=== PATIENT | female | born 1935 | race Caucasian/White ===

== ENCOUNTER 2017-04-18 13:15 | Inpatient (IN) | payer MEDICARE, OTHER ==
[~2017-04-18] VITALS: Ht 152.4 cm; Wt 60.3 kg
[~2017-04-18 13:15] MED LIST: CITA10TA70 PO; GLIP-115 PO; LISI-646 PO; METF-371 PO; MONT10TA34 OR; OMEP20CA74 OR; SIMV-13 PO
[2017-04-18 13:51] LABS: Eosinophils # (auto) 0.1 uL; Mean Corpuscular Volume 82.2 fL (80.0-100.0); Red Blood Cells 4.14 10^6/uL (4.0-5.20)
[2017-04-18 13:53] LABS: Basophils # (auto) 0 uL; Basophils % (auto) 0.3 % (0.0-2.0); Eosinophils % (auto) 0.8 % (0.0-7.0); Hematocrit 34.1 % (36.0-46.0); Lymphocytes # (auto) 0.4 uL; Lymphocytes % (auto) 5.9 % (10.0-50.0); Mean Corpuscular Hemoglobin 26.6 pg (28.0-32.0); Mean Corpuscular Hgb Conc. 32.4 g/dL (32.0-36.0); Neutrophils # (auto) 5.5 uL; Nucleated Red Blood Cells % 0.1 %; Platelet Count (auto) 182 10^3/uL (140-450); Red Cell Distribution Width 14.8 % (11.8-14.3)
[2017-04-18 14:12] LABS: Alanine Aminotransferase 18 U/L (13-56); Albumin 3.2 g/dL (3.4-5.0); Alkaline Phosphatase 91 U/L (45-117); Anion Gap 12 (5-15); Aspartate Aminotransferase 18 U/L (15-37); BUN/Creatinine Ratio 14.1; Bilirubin, Total 0.2 mg/dL (0.2-1.0); Blood Urea Nitrogen 21 mg/dL (7-18); Calcium 8.4 mg/dL (8.5-10.1); Carbon Dioxide 23 mmol/L (21-32); Chloride 96 mmol/L (98-107); GFR African American 43 mL/min; GFR Non-African American 36 mL/min; Glucose 112 mg/dL (74-106); Potassium 4.1 mmol/L (3.5-5.1); Sodium 131 mmol/L (136-145); Total Protein 7.1 g/dL (6.4-8.2)
[2017-04-18] MEDS ORDERED: SODIUM CHLORIDE 0.9% 1,000 ML IVB ONE (14:29)
[2017-04-18] MEDS ORDERED: LORazepam 0.5 MG TAB PO PRN (15:15)
[2017-04-18] MEDS ORDERED: PROMETHAZINE HCL 25 MG/ML 1ML IV PRN (15:15)
[2017-04-18] MEDS ORDERED: ACETAMINOPHEN 500 MG TAB PO PRN (15:15)
[2017-04-18] MEDS ORDERED: LACTULOSE 20Gm/30ML SOLN PO PRN (15:15)
[2017-04-18] MEDS ORDERED: MORPHINE SULFATE 4 MG/ML SYR/VIAL IV PRN ×2 (15:15)
[2017-04-18] MEDS ORDERED: DEXTROSE (50%) 50ML SYRG IV PRN (15:15)
[2017-04-18] MEDS ORDERED: NITROGLYCERIN 0.4 MG SL TAB SL PRN (15:15)
[2017-04-18] MEDS ORDERED: LABETALOL HCL 5 MG/ML ML 20ML VIAL IV PRN (15:15)
[2017-04-18] MEDS: ENOXAPARIN SOD 30 MG/0.3 ML SYRINGE SC SCH (16:35)
[2017-04-18] MEDS: PANTOPRAZOLE 40 MG TAB PO SCH (16:35)
[2017-04-18] MEDS: SODIUM CHLORIDE 0.9% 1,000 ML IV SCH (16:46)
[2017-04-18] MEDS: ACCU-CHEK COMFORT CURVE STRIP VI SCH ×2 (17:00→22:07)
[2017-04-18] MEDS: InsuLIN REG 1unit/0.01ml Soln (100units/ml) SC SCH ×2 (17:00→22:00)
[2017-04-18 17:57] VITALS: BP 138/69
[2017-04-18] MEDS ORDERED: INFLUENZA QUAD 2017-2018 0.5 ML SYRG IM ONE (18:30)
[2017-04-18 22:00] VITALS: BP 159/81
[2017-04-18] MEDS: ATORVASTATIN 20 MG TAB PO SCH (22:08)
[2017-04-18] MEDS: TEMAZEPAM 15 MG CAP PO PRN (23:08)
[2017-04-19] MEDS: SODIUM CHLORIDE 0.9% 1,000 ML IV SCH ×2 (03:36→18:26)
[2017-04-19 05:00] VITALS: BP 162/66
[2017-04-19] MEDS: ACCU-CHEK COMFORT CURVE STRIP VI SCH ×4 (06:09→22:00)
[2017-04-19] MEDS: InsuLIN REG 1unit/0.01ml Soln (100units/ml) SC SCH ×4 (06:09→22:00)
[2017-04-19 08:00] VITALS: BP 109/60
[2017-04-19 08:02] LABS: Eosinophils # (auto) 0.1 uL; Mean Corpuscular Hemoglobin 26.9 pg (28.0-32.0); Mean Corpuscular Hgb Conc. 31.9 g/dL (32.0-36.0); Monocytes # (auto) 0.9 uL; Neutrophils # (auto) 4.7 uL; White Blood Cell 6.5 10^3/uL (4.4-10.8)
[2017-04-19 08:04] LABS: Basophils # (auto) 0.1 uL; Basophils % (auto) 0.9 % (0.0-2.0); Eosinophils % (auto) 0.9 % (0.0-7.0); Hemoglobin 10.8 g/dL (12.2-16.2); Lymphocytes # (auto) 0.9 uL; Lymphocytes % (auto) 13.1 % (10.0-50.0); Mean Corpuscular Volume 84.4 fL (80.0-100.0); Monocytes % (auto) 13.5 % (0.0-12.0); Neutrophils % (auto) 71.6 % (37.0-80.0); Nucleated Red Blood Cells % 0.5 %; Platelet Count (auto) 169 10^3/uL (140-450); Red Blood Cells 4.02 10^6/uL (4.0-5.20)
[2017-04-19 08:51] LABS: BUN/Creatinine Ratio 12.9; Bilirubin, Total 0.2 mg/dL (0.2-1.0); Calcium 8.1 mg/dL (8.5-10.1); Total Protein 6.9 g/dL (6.4-8.2)
[2017-04-19 09:00] VITALS: BP 109/60
[2017-04-19 09:36] LABS: Folate (Folic Acid) > 24.00 ng/mL (5.38-24)
[2017-04-19 09:44] LABS: Urine Bacteria MANY /hpf (None Seen); Urine Blood TRACE /uL (Negative); Urine Specific Gravity 1.006 (1.001-1.035); Urine WBC 66 /hpf (0 - 5)
[2017-04-19] MEDS: ASPirin 81 mg TAB PO SCH (10:22)
[2017-04-19] MEDS: ENOXAPARIN SOD 30 MG/0.3 ML SYRINGE SC SCH (10:22)
[2017-04-19] MEDS: PANTOPRAZOLE 40 MG TAB PO SCH (10:22)
[2017-04-19] MEDS ORDERED: MORPHINE SULFATE 4 MG/ML SYR/VIAL IV PRN (11:45)
[2017-04-19] MEDS ORDERED: AZITHROMYCIN 500MG/ 250ML 250 ML IV ONE (11:45)
[2017-04-19] MEDS ORDERED: OSELTAMIVIR 75 MG CAP PO ONE (11:45)
[2017-04-19] MEDS ORDERED: cefTRIAXone 1GM/10ml IVPUSH 10 ML IV ONE (11:45)
[2017-04-19] MEDS ORDERED: OSELTAMIVIR 30 MG CAP PO ONE (12:00)
[2017-04-19 13:00] VITALS: BP 115/47
[2017-04-19 17:00] VITALS: BP 150/69
[2017-04-19] MEDS: ATORVASTATIN 20 MG TAB PO SCH (19:51)
[2017-04-19] MEDS: HYDROcodone-ACET 5/325MG TAB PO PRN (20:00)
[2017-04-19] MEDS: TEMAZEPAM 15 MG CAP PO PRN (21:17)
[2017-04-19] MEDS ORDERED: OSELTAMIVIR 75 MG CAP PO SCH (22:00)
[2017-04-19 22:10] VITALS: BP 156/67
[2017-04-20] MEDS: SODIUM CHLORIDE 0.9% 1,000 ML IV SCH ×2 (04:36→18:13)
[2017-04-20 04:50] VITALS: BP 127/70
[2017-04-20] MEDS: InsuLIN REG 1unit/0.01ml Soln (100units/ml) SC SCH ×2 (06:05→11:30)
[2017-04-20] MEDS: ACCU-CHEK COMFORT CURVE STRIP VI SCH ×2 (06:06→11:30)
[2017-04-20 08:00] VITALS: BP 109/60
[2017-04-20 08:08] VITALS: BP 169/67
[2017-04-20 08:33] LABS: Basophils # (auto) 0 uL; Basophils % (auto) 0.6 % (0.0-2.0); Eosinophils # (auto) 0.2 uL; Eosinophils % (auto) 4.4 % (0.0-7.0); Hemoglobin 10.4 g/dL (12.2-16.2); Lymphocytes # (auto) 0.8 uL; Lymphocytes % (auto) 17.7 % (10.0-50.0); Mean Corpuscular Hgb Conc. 32.6 g/dL (32.0-36.0); Mean Corpuscular Volume 82.9 fL (80.0-100.0); Monocytes # (auto) 0.7 uL; Monocytes % (auto) 14.9 % (0.0-12.0); Neutrophils # (auto) 2.8 uL; Neutrophils % (auto) 62.4 % (37.0-80.0); Nucleated Red Blood Cells % 0.3 %; Platelet Count (auto) 145 10^3/uL (140-450); Red Blood Cells 3.86 10^6/uL (4.0-5.20); Red Cell Distribution Width 14.6 % (11.8-14.3); White Blood Cell 4.5 10^3/uL (4.4-10.8)
[2017-04-20 08:50] LABS: BUN/Creatinine Ratio 12.7; Calcium 8.1 mg/dL (8.5-10.1); Potassium 4.3 mmol/L (3.5-5.1)
[2017-04-20] MEDS: ASPirin 81 mg TAB PO SCH (10:22)
[2017-04-20] MEDS: OSELTAMIVIR 30 MG CAP PO SCH (10:23)
[2017-04-20] MEDS: cefTRIAXone 1GM/10ml IVPUSH 10 ML IV SCH (10:23)
[2017-04-20] MEDS: PANTOPRAZOLE 40 MG TAB PO SCH (10:23)
[2017-04-20] MEDS: ENOXAPARIN SOD 30 MG/0.3 ML SYRINGE SC SCH (10:24)
[2017-04-20] MEDS: AZITHROMYCIN 500MG/ 250ML 250 ML IV SCH (10:46)
[2017-04-20 11:53] VITALS: BP 143/74
[2017-04-20] MEDS: HYDROcodone-ACET 5/325MG TAB PO PRN ×3 (13:00→20:25)
[2017-04-20 16:10] VITALS: BP 159/77
[2017-04-20] MEDS: ATORVASTATIN 20 MG TAB PO SCH (20:25)
[2017-04-20 21:57] VITALS: BP 162/71
[2017-04-21 05:26] VITALS: BP 156/76
[2017-04-21] MEDS: SODIUM CHLORIDE 0.9% 1,000 ML IV SCH (05:36)
[2017-04-21 07:28] LABS: BUN/Creatinine Ratio 9.5; Potassium 3.9 mmol/L (3.5-5.1)
[2017-04-21 09:00] VITALS: BP 146/85
[2017-04-21] MEDS: cefTRIAXone 1GM/10ml IVPUSH 10 ML IV SCH (09:14)
[2017-04-21] MEDS: ASPirin 81 mg TAB PO SCH (10:40)
[2017-04-21] MEDS: ENOXAPARIN SOD 30 MG/0.3 ML SYRINGE SC SCH (10:40)
[2017-04-21] MEDS: PANTOPRAZOLE 40 MG TAB PO SCH (10:40)
[2017-04-21] MEDS: AZITHROMYCIN 500MG/ 250ML 250 ML IV SCH (10:41)
[2017-04-21 12:00] VITALS: BP 176/76
[2017-04-21] MEDS: OSELTAMIVIR 30 MG CAP PO SCH (15:09)
[2017-04-21 16:30] VITALS: BP 149/85
[2017-04-21 16:54] VITALS: BP 146/85
== END 2017-04-21 17:34 | disposition home health service (06) | DRG 871 ==
LOC: ER 13:15 → EDBD 13:15 → TELE 13:16 → TELE-EAST 17:01
PROVIDERS: ADMIT Internal Medicine; ATTEND Internal Medicine
DX: A41.9 Sepsis, unspecified organism (principal); N17.0 Acute kidney failure with tubular necrosis; G92 Toxic encephalopathy; E87.1 Hypo-osmolality and hyponatremia; N39.0 Urinary tract infection, site not specified; I69.354 Hemiplegia and hemiparesis following cerebral infarction affecting left non-dominant side; J98.11 Atelectasis; R55 Syncope and collapse; E86.0 Dehydration; I70.0 Atherosclerosis of aorta; I08.0 Rheumatic disorders of both mitral and aortic valves; D63.8 Anemia in other chronic diseases classified elsewhere; E11.21 Type 2 diabetes mellitus with diabetic nephropathy; E78.5 Hyperlipidemia, unspecified; E87.8 Other disorders of electrolyte and fluid balance, not elsewhere classified; F03.90 Unspecified dementia, unspecified severity, without behavioral disturbance, psychotic disturbance, mood disturbance, and anxiety; F32.9 Major depressive disorder, single episode, unspecified; G40.409 Other generalized epilepsy and epileptic syndromes, not intractable, without status epilepticus; I12.9 Hypertensive chronic kidney disease with stage 1 through stage 4 chronic kidney disease, or unspecified chronic kidney disease; E11.22 Type 2 diabetes mellitus with diabetic chronic kidney disease; G93.89 Other specified disorders of brain; I65.22 Occlusion and stenosis of left carotid artery; J10.1 Influenza due to other identified influenza virus with other respiratory manifestations; N18.3 Chronic kidney disease, stage 3 (moderate); Z79.82 Long term (current) use of aspirin; Z79.899 Other long term (current) drug therapy; Z82.49 Family history of ischemic heart disease and other diseases of the circulatory system; Z83.3 Family history of diabetes mellitus; Z79.84 Long term (current) use of oral hypoglycemic drugs; Z90.89 Acquired absence of other organs
CPT/HCPCS: 36415; 70450; 70551; 71045; 80048; 80053; 81001; 82550; 82607; 82746; 82962; 83036; 84443; 84484; 85025; 85652; 87804; 93005; 93306; 93886; 96361; 96365; 96372; 96375; 97116; 97163; 97530; G9035

== ENCOUNTER 2017-12-05 08:09 | Inpatient (IN) | payer MEDICARE, OTHER ==
[~2017-12-05] VITALS: Ht 152.4 cm; Wt 53.0 kg
[~2017-12-05 08:09] MED LIST changes: -CITA10TA70 PO; -LISI-646 PO; -MONT10TA34 OR; -SIMV-13 PO
[2017-12-05 09:06] LABS: Basophils # (auto) 0 uL; Basophils % (auto) 0.3 % (0.0-2.0); Eosinophils # (auto) 0.1 uL; Lymphocytes # (auto) 0.8 uL; Monocytes # (auto) 0.7 uL
[2017-12-05 09:08] LABS: Hematocrit 30.9 % (36.0-46.0); Hemoglobin 9.8 g/dL (12.2-16.2); Lymphocytes % (auto) 7.5 % (10.0-50.0); Mean Corpuscular Hemoglobin 25.3 pg (28.0-32.0); Mean Corpuscular Hgb Conc. 31.6 g/dL (32.0-36.0); Mean Corpuscular Volume 80.1 fL (80.0-100.0); Monocytes % (auto) 6.6 % (0.0-12.0); Neutrophils # (auto) 8.7 uL; Neutrophils % (auto) 84.6 % (37.0-80.0); Platelet Count (auto) 313 10^3/uL (140-450); Red Blood Cells 3.86 10^6/uL (4.0-5.20); White Blood Cell 10.3 10^3/uL (4.4-10.8)
[2017-12-05 09:27] LABS: Alanine Aminotransferase 17 U/L (13-56); Albumin 3.3 g/dL (3.4-5.0); Alkaline Phosphatase 117 U/L (45-117); Anion Gap 7 (5-15); Aspartate Aminotransferase 16 U/L (15-37); BUN/Creatinine Ratio 14.4; Bilirubin, Total 0.1 mg/dL (0.2-1.0); Blood Urea Nitrogen 27 mg/dL (7-18); Calcium 9.3 mg/dL (8.5-10.1); Carbon Dioxide 22 mmol/L (21-32); Chloride 98 mmol/L (98-107); GFR African American 33 mL/min; GFR Non-African American 27 mL/min; Glucose 124 mg/dL (74-106); Magnesium 1.9 mg/dL (1.6-2.6); Sodium 127 mmol/L (136-145); Total Protein 7.8 g/dL (6.4-8.2)
[2017-12-05 09:30] LABS: Urine Bacteria FEW /hpf (None Seen); Urine Blood Negative /uL (Negative); Urine Specific Gravity 1.006 (1.001-1.035); Urine WBC 47 /hpf (0 - 5)
[2017-12-05 09:38] LABS: Potassium 6.2 mmol/L (3.5-5.1)
[2017-12-05] MEDS ORDERED: SODIUM CHLORIDE 0.9% 1,000 ML IV ONE (09:53)
[2017-12-05] MEDS ORDERED: SODIUM BICARBONATE 8.4 % INJ 50ML VIAL IV ONE (10:00)
[2017-12-05] MEDS ORDERED: cefTRIAXone 1GM/10ml IVPUSH 10 ML IV ONE (10:00)
[2017-12-05] MEDS ORDERED: ONDANSETRON HCL 4 MG/2 ML VIAL IV ONE (10:00)
[2017-12-05] MEDS ORDERED: FUROSEMIDE 40 MG/4 ML VIAL IV ONE (10:00)
[2017-12-05] MEDS ORDERED: CALCIUM CHL 100MG/ML 1,000 MG in D5W 5% 100 ML IV ONE (10:00)
[2017-12-05] MEDS ORDERED: FER325T PO (10:53)
[2017-12-05] MEDS ORDERED: IMIQ5CRE4 EX (10:53)
[2017-12-05] MEDS ORDERED: SULF400T11 PO (10:53)
[2017-12-05] MEDS ORDERED: METF-372 PO (10:53)
[2017-12-05] MEDS ORDERED: DOCUSATE SOD 100 MG CAP PO PRN (15:45)
[2017-12-05] MEDS ORDERED: MORPHINE SULFATE 4 MG/ML SYR/VIAL IV PRN (15:45)
[2017-12-05] MEDS ORDERED: ONDANSETRON HCL 4 MG/2 ML VIAL IV PRN (15:45)
[2017-12-05] MEDS ORDERED: HYDROcodone-ACET 5/325MG TAB PO PRN (15:45)
[2017-12-05] MEDS ORDERED: DEXTROSE (50%) 50ML SYRG IV PRN (15:45)
[2017-12-05] MEDS ORDERED: NITROGLYCERIN 0.4 MG SL TAB SL PRN (15:45)
[2017-12-05 17:00] VITALS: BP 129/58
[2017-12-05] MEDS: InsuLIN REG 1unit/0.01ml Soln (100units/ml) SC SCH ×2 (17:00→22:00)
[2017-12-05] MEDS: ACCU-CHEK COMFORT CURVE STRIP VI SCH ×2 (17:28→22:01)
[2017-12-05 17:31] VITALS: BP 129/58
[2017-12-05] MEDS: glipiZIDE 5 MG TAB PO SCH (18:07)
[2017-12-05] MEDS: FERROUS SULFATE 325 MG TAB PO SCH (18:07)
[2017-12-05 19:01] LABS: BUN/Creatinine Ratio 11.6; Calcium 9.6 mg/dL (8.5-10.1); Potassium 4.7 mmol/L (3.5-5.1)
[2017-12-05 21:28] VITALS: BP 147/70
[2017-12-05] MEDS: SULFAMETHOX W/TRIMETH(800/160MG) DS TAB PO SCH (21:59)
[2017-12-05] MEDS: SODIUM CHLOR 0.9% PF (SALINE LOCK) 10ML VIAL/SYR IV SCH (21:59)
[2017-12-05] MEDS: FAMOTIDINE 20 MG TAB PO SCH (21:59)
[2017-12-05] MEDS: TEMAZEPAM 15 MG CAP PO PRN (21:59)
[2017-12-06 04:43] VITALS: BP 141/60
[2017-12-06 05:50] LABS: Basophils # (auto) 0 uL; Eosinophils # (auto) 0.1 uL; Lymphocytes # (auto) 0.3 uL; Mean Corpuscular Hgb Conc. 32.5 g/dL (32.0-36.0); Monocytes # (auto) 0.7 uL
[2017-12-06 05:52] LABS: Basophils % (auto) 0.3 % (0.0-2.0); Eosinophils % (auto) 1.1 % (0.0-7.0); Hematocrit 29.3 % (36.0-46.0); Hemoglobin 9.5 g/dL (12.2-16.2); Lymphocytes % (auto) 3.5 % (10.0-50.0); Mean Corpuscular Volume 78.4 fL (80.0-100.0); Monocytes % (auto) 9.6 % (0.0-12.0); Neutrophils # (auto) 6.3 uL; Neutrophils % (auto) 85.5 % (37.0-80.0); Platelet Count (auto) 249 10^3/uL (140-450); Red Blood Cells 3.74 10^6/uL (4.0-5.20); Red Cell Distribution Width 15.9 % (11.8-14.3); White Blood Cell 7.4 10^3/uL (4.4-10.8)
[2017-12-06 05:58] LABS: Mean Corpuscular Hemoglobin 25.7 pg (28.0-32.0)
[2017-12-06] MEDS: InsuLIN REG 1unit/0.01ml Soln (100units/ml) SC SCH ×4 (06:48→21:38)
[2017-12-06] MEDS: SODIUM CHLOR 0.9% PF (SALINE LOCK) 10ML VIAL/SYR IV SCH ×3 (06:48→21:36)
[2017-12-06] MEDS: ACCU-CHEK COMFORT CURVE STRIP VI SCH ×4 (06:48→21:38)
[2017-12-06] MEDS: glipiZIDE 5 MG TAB PO SCH ×2 (06:48→18:20)
[2017-12-06 07:05] LABS: Albumin 3.2 g/dL (3.4-5.0); BUN/Creatinine Ratio 11.4; Bilirubin, Total 0.5 mg/dL (0.2-1.0); Calcium 9.2 mg/dL (8.5-10.1); Potassium 5.1 mmol/L (3.5-5.1); Total Protein 7.2 g/dL (6.4-8.2)
[2017-12-06 09:00] VITALS: BP 119/59
[2017-12-06] MEDS: SULFAMETHOX W/TRIMETH(800/160MG) DS TAB PO SCH (09:44)
[2017-12-06] MEDS: ENOXAPARIN SOD 30 MG/0.3 ML SYRINGE SC SCH (09:44)
[2017-12-06] MEDS: cefTRIAXone 1GM/10ml IVPUSH 10 ML IV SCH (09:44)
[2017-12-06] MEDS: FERROUS SULFATE 325 MG TAB PO SCH ×2 (09:45→18:20)
[2017-12-06] MEDS: MULTIPLE VITAMIN TAB PO SCH (09:45)
[2017-12-06] MEDS: SODIUM CHLORIDE 0.9% 1,000 ML IV SCH ×2 (12:50→20:14)
[2017-12-06 13:00] VITALS: BP 146/78
[2017-12-06] MEDS ORDERED: LORazepam 2MG/ML-1ML VIAL IV PRN (16:00)
[2017-12-06 17:00] VITALS: BP 138/74
[2017-12-06] MEDS: FAMOTIDINE 20 MG TAB PO SCH (21:36)
[2017-12-06] MEDS: ATORVASTATIN 20 MG TAB PO SCH (21:36)
[2017-12-06 22:00] VITALS: BP 140/69
[2017-12-07] MEDS: SODIUM CHLORIDE 0.9% 1,000 ML IV SCH ×3 (04:30→20:30)
[2017-12-07 05:27] VITALS: BP 187/71
[2017-12-07] MEDS: SODIUM CHLOR 0.9% PF (SALINE LOCK) 10ML VIAL/SYR IV SCH ×3 (06:09→22:00)
[2017-12-07] MEDS: ACCU-CHEK COMFORT CURVE STRIP VI SCH ×4 (06:35→21:36)
[2017-12-07] MEDS: glipiZIDE 5 MG TAB PO SCH ×2 (06:36→18:04)
[2017-12-07] MEDS: InsuLIN REG 1unit/0.01ml Soln (100units/ml) SC SCH ×4 (06:36→21:36)
[2017-12-07 08:00] VITALS: BP 143/74
[2017-12-07] MEDS: ASPirin-EC 81 mg tab PO SCH (09:12)
[2017-12-07] MEDS: ENOXAPARIN SOD 30 MG/0.3 ML SYRINGE SC SCH (09:12)
[2017-12-07] MEDS: cefTRIAXone 1GM/10ml IVPUSH 10 ML IV SCH (09:12)
[2017-12-07] MEDS: FERROUS SULFATE 325 MG TAB PO SCH ×2 (09:12→18:04)
[2017-12-07] MEDS: MULTIPLE VITAMIN TAB PO SCH (09:13)
[2017-12-07 12:32] VITALS: BP 140/63
[2017-12-07 17:04] VITALS: BP 148/68
[2017-12-07] MEDS: FAMOTIDINE 20 MG TAB PO SCH (21:35)
[2017-12-07] MEDS: ATORVASTATIN 20 MG TAB PO SCH (21:35)
[2017-12-07] MEDS: TEMAZEPAM 15 MG CAP PO PRN (21:45)
[2017-12-07 22:00] VITALS: BP 150/88
[2017-12-08] MEDS: SODIUM CHLORIDE 0.9% 1,000 ML IV SCH ×3 (04:30→20:30)
[2017-12-08 04:55] VITALS: BP 152/86
[2017-12-08] MEDS: SODIUM CHLOR 0.9% PF (SALINE LOCK) 10ML VIAL/SYR IV SCH ×2 (06:00→14:00)
[2017-12-08] MEDS: ACCU-CHEK COMFORT CURVE STRIP VI SCH ×4 (06:38→21:36)
[2017-12-08] MEDS: glipiZIDE 5 MG TAB PO SCH ×2 (06:38→18:20)
[2017-12-08] MEDS: InsuLIN REG 1unit/0.01ml Soln (100units/ml) SC SCH ×4 (06:39→22:44)
[2017-12-08] MEDS: FERROUS SULFATE 325 MG TAB PO SCH ×2 (08:14→18:20)
[2017-12-08] MEDS: cefTRIAXone 1GM/10ml IVPUSH 10 ML IV SCH (09:00)
[2017-12-08 09:58] VITALS: BP 151/91
[2017-12-08] MEDS: ASPirin-EC 81 mg tab PO SCH (10:25)
[2017-12-08] MEDS: ENOXAPARIN SOD 30 MG/0.3 ML SYRINGE SC SCH (10:26)
[2017-12-08] MEDS: MULTIPLE VITAMIN TAB PO SCH (10:26)
[2017-12-08 12:30] VITALS: BP 142/73
[2017-12-08 14:28] LABS: Protein, Urine 48.8 mg/dL (0.0-11.9)
[2017-12-08 17:20] VITALS: BP 159/71
[2017-12-08] MEDS: ATORVASTATIN 20 MG TAB PO SCH (21:36)
[2017-12-08] MEDS: FAMOTIDINE 20 MG TAB PO SCH (21:36)
[2017-12-08] MEDS: TEMAZEPAM 15 MG CAP PO PRN (21:36)
[2017-12-08 21:54] VITALS: BP 169/72
[2017-12-09] MEDS: SODIUM CHLOR 0.9% PF (SALINE LOCK) 10ML VIAL/SYR IV SCH ×4 (01:29→22:00)
[2017-12-09] MEDS: SODIUM CHLORIDE 0.9% 1,000 ML IV SCH ×3 (04:30→20:30)
[2017-12-09 05:10] VITALS: BP 152/66
[2017-12-09] MEDS: glipiZIDE 5 MG TAB PO SCH ×2 (06:33→17:34)
[2017-12-09] MEDS: InsuLIN REG 1unit/0.01ml Soln (100units/ml) SC SCH ×4 (06:33→22:00)
[2017-12-09] MEDS: ACCU-CHEK COMFORT CURVE STRIP VI SCH ×4 (06:33→22:00)
[2017-12-09 06:35] LABS: Lymphocytes # (auto) 1.1 uL
[2017-12-09 06:37] LABS: Basophils # (auto) 0 uL; Basophils % (auto) 0.6 % (0.0-2.0); Eosinophils # (auto) 0.3 uL; Eosinophils % (auto) 4.7 % (0.0-7.0); Hematocrit 29.1 % (36.0-46.0); Hemoglobin 9.4 g/dL (12.2-16.2); Lymphocytes % (auto) 15.5 % (10.0-50.0); Mean Corpuscular Hemoglobin 25.8 pg (28.0-32.0); Mean Corpuscular Hgb Conc. 32.4 g/dL (32.0-36.0); Mean Corpuscular Volume 79.6 fL (80.0-100.0); Monocytes % (auto) 13.8 % (0.0-12.0); Neutrophils # (auto) 4.8 uL; Neutrophils % (auto) 65.4 % (37.0-80.0); Platelet Count (auto) 223 10^3/uL (140-450); Red Blood Cells 3.66 10^6/uL (4.0-5.20); White Blood Cell 7.4 10^3/uL (4.4-10.8)
[2017-12-09 06:57] LABS: Albumin 2.9 g/dL (3.4-5.0); BUN/Creatinine Ratio 9.8; Bilirubin, Total 0.2 mg/dL (0.2-1.0); Calcium 8.5 mg/dL (8.5-10.1); Potassium 4.9 mmol/L (3.5-5.1); Total Protein 6.7 g/dL (6.4-8.2)
[2017-12-09 09:00] VITALS: BP 151/79
[2017-12-09] MEDS: cefTRIAXone 1GM/10ml IVPUSH 10 ML IV SCH (09:00)
[2017-12-09] MEDS: ASPirin-EC 81 mg tab PO SCH (09:48)
[2017-12-09] MEDS: MULTIPLE VITAMIN TAB PO SCH (09:48)
[2017-12-09] MEDS: ENOXAPARIN SOD 30 MG/0.3 ML SYRINGE SC SCH (09:48)
[2017-12-09] MEDS: FERROUS SULFATE 325 MG TAB PO SCH ×2 (09:48→17:35)
[2017-12-09] MEDS: ACETAMINOPHEN 325 MG TAB PO PRN ×2 (09:48→20:16)
[2017-12-09] MEDS ORDERED: cefTRIAXone W LIDOCAINE 1 GM IM IM ONE (12:15)
[2017-12-09 13:00] VITALS: BP 102/63
[2017-12-09 17:00] VITALS: BP 149/73
[2017-12-09 21:46] VITALS: BP 150/67
[2017-12-09] MEDS: FAMOTIDINE 20 MG TAB PO SCH (22:02)
[2017-12-09] MEDS: TEMAZEPAM 15 MG CAP PO PRN (22:02)
[2017-12-09] MEDS: ATORVASTATIN 20 MG TAB PO SCH (22:02)
[2017-12-10] MEDS: SODIUM CHLORIDE 0.9% 1,000 ML IV SCH ×2 (04:30→12:30)
[2017-12-10 05:16] VITALS: BP 120/63
[2017-12-10] MEDS: SODIUM CHLOR 0.9% PF (SALINE LOCK) 10ML VIAL/SYR IV SCH ×2 (05:55→14:00)
[2017-12-10] MEDS: InsuLIN REG 1unit/0.01ml Soln (100units/ml) SC SCH ×2 (07:00→11:30)
[2017-12-10] MEDS: glipiZIDE 5 MG TAB PO SCH (07:11)
[2017-12-10] MEDS: ACCU-CHEK COMFORT CURVE STRIP VI SCH ×2 (07:12→11:30)
[2017-12-10 09:00] VITALS: BP 164/78
[2017-12-10] MEDS: cefTRIAXone 1GM/10ml IVPUSH 10 ML IV SCH (09:00)
[2017-12-10] MEDS: MULTIPLE VITAMIN TAB PO SCH (10:19)
[2017-12-10] MEDS: ASPirin-EC 81 mg tab PO SCH (10:19)
[2017-12-10] MEDS: FERROUS SULFATE 325 MG TAB PO SCH (10:19)
[2017-12-10] MEDS: ENOXAPARIN SOD 30 MG/0.3 ML SYRINGE SC SCH (10:20)
[2017-12-10 13:00] VITALS: BP 156/69
[2017-12-10 17:01] VITALS: BP 154/70
== END 2017-12-10 18:29 | disposition home health service (06) | DRG 871 ==
LOC: ER 08:09 → TELE 08:10 → TELE-WESTW 17:20
PROVIDERS: ADMIT Internal Medicine; ATTEND Family Medicine
DX: A41.9 Sepsis, unspecified organism (principal); G92 Toxic encephalopathy; J18.9 Pneumonia, unspecified organism; N17.0 Acute kidney failure with tubular necrosis; N39.0 Urinary tract infection, site not specified; E87.1 Hypo-osmolality and hyponatremia; E44.1 Mild protein-calorie malnutrition; J98.11 Atelectasis; I45.2 Bifascicular block; I69.354 Hemiplegia and hemiparesis following cerebral infarction affecting left non-dominant side; I70.90 Unspecified atherosclerosis; I13.10 Hypertensive heart and chronic kidney disease without heart failure, with stage 1 through stage 4 chronic kidney disease, or unspecified chronic kidney disease; E87.5 Hyperkalemia; E11.22 Type 2 diabetes mellitus with diabetic chronic kidney disease; E11.21 Type 2 diabetes mellitus with diabetic nephropathy; D50.9 Iron deficiency anemia, unspecified; E78.00 Pure hypercholesterolemia, unspecified; E78.5 Hyperlipidemia, unspecified; E11.649 Type 2 diabetes mellitus with hypoglycemia without coma; R13.10 Dysphagia, unspecified; G93.89 Other specified disorders of brain; F32.9 Major depressive disorder, single episode, unspecified; G40.409 Other generalized epilepsy and epileptic syndromes, not intractable, without status epilepticus; T37.0X5A Adverse effect of sulfonamides, initial encounter; N18.3 Chronic kidney disease, stage 3 (moderate); I70.0 Atherosclerosis of aorta; I65.22 Occlusion and stenosis of left carotid artery; E11.65 Type 2 diabetes mellitus with hyperglycemia; Z79.899 Other long term (current) drug therapy; Z79.82 Long term (current) use of aspirin; Z82.49 Family history of ischemic heart disease and other diseases of the circulatory system; Z83.3 Family history of diabetes mellitus; Z68.22 Body mass index [BMI] 22.0-22.9, adult
CPT/HCPCS: 36415; 51702; 70450; 70551; 71045; 76775; 80048; 80053; 81001; 82570; 82962; 83036; 83540; 83735; 83935; 84100; 84156; 84300; 84484; 85025; 87040; 87086; 92610; 93005; 93306; 93886; 94761; 95819; 96374; 96375; J0696; J1815; J2405; J7060

== ENCOUNTER 2017-12-12 22:09 | Inpatient (IN) | payer MEDICARE, OTHER ==
[~2017-12-12] VITALS: Ht 152.4 cm; Wt 59.5 kg
[~2017-12-12 22:09] MED LIST changes: +FER325T PO; +IMIQ5CRE4 EX; -METF-371 PO; +METF-372 PO; +SULF400T11 PO
[2017-12-12 23:31] LABS: Basophils # (auto) 0.1 uL; Basophils % (auto) 0.4 % (0.0-2.0); Eosinophils # (auto) 0.6 uL; Eosinophils % (auto) 4.1 % (0.0-7.0); Hematocrit 29.5 % (36.0-46.0); Hemoglobin 9.3 g/dL (12.2-16.2); Lymphocytes # (auto) 0.5 uL; Lymphocytes % (auto) 3.2 % (10.0-50.0); Mean Corpuscular Hemoglobin 25.2 pg (28.0-32.0); Mean Corpuscular Hgb Conc. 31.6 g/dL (32.0-36.0); Mean Corpuscular Volume 79.5 fL (80.0-100.0); Monocytes # (auto) 1.1 uL; Monocytes % (auto) 7.4 % (0.0-12.0); Neutrophils # (auto) 12.2 uL; Neutrophils % (auto) 84.9 % (37.0-80.0); Platelet Count (auto) 313 10^3/uL (140-450); Red Blood Cells 3.71 10^6/uL (4.0-5.20); Red Cell Distribution Width 16.3 % (11.8-14.3); White Blood Cell 14.4 10^3/uL (4.4-10.8)
[2017-12-12 23:43] LABS: BUN/Creatinine Ratio 18.6; Calcium 8.5 mg/dL (8.5-10.1); Potassium 4.3 mmol/L (3.5-5.1)
[2017-12-12 23:45] LABS: Bilirubin, Total 0.3 mg/dL (0.2-1.0); Total Protein 7.4 g/dL (6.4-8.2)
[2017-12-13] MEDS ORDERED: CIPROFLOXACIN 400MG/200ML 200 ML IV ONE ×2 (01:00→02:15)
[2017-12-13 01:56] LABS: Urine Bacteria MANY /hpf (None Seen); Urine Blood 2+ /uL (Negative); Urine Specific Gravity 1.009 (1.001-1.035); Urine WBC 172 /hpf (0 - 5); Urine WBC Clumps PRESENT /hpf (None Seen)
[2017-12-13] MEDS ORDERED: ONDANSETRON HCL 4 MG/2 ML VIAL IV PRN (04:15)
[2017-12-13] MEDS ORDERED: DOCUSATE SOD 100 MG CAP PO PRN (04:15)
[2017-12-13] MEDS ORDERED: HYDROcodone-ACET 5/325MG TAB PO PRN (04:15)
[2017-12-13] MEDS: SODIUM CHLORIDE 0.9% 1,000 ML IV SCH ×2 (04:30→21:10)
[2017-12-13] MEDS ORDERED: SODIUM CHLORIDE 0.9% 500 ML IV ONE (04:30)
[2017-12-13 05:14] LABS: Basophils # (auto) 0 uL; Basophils % (auto) 0.3 % (0.0-2.0); Neutrophils # (auto) 7.6 uL; Red Blood Cells 3.12 10^6/uL (4.0-5.20)
[2017-12-13] MEDS ORDERED: LORazepam 2MG/ML-1ML VIAL IV PRN (05:15)
[2017-12-13 05:16] LABS: Eosinophils # (auto) 0.8 uL; Eosinophils % (auto) 7.6 % (0.0-7.0); Hematocrit 24.8 % (36.0-46.0); Hemoglobin 8.2 g/dL (12.2-16.2); Lymphocytes # (auto) 0.7 uL; Lymphocytes % (auto) 6.5 % (10.0-50.0); Mean Corpuscular Hemoglobin 26.4 pg (28.0-32.0); Mean Corpuscular Hgb Conc. 33.2 g/dL (32.0-36.0); Mean Corpuscular Volume 79.4 fL (80.0-100.0); Monocytes % (auto) 9.6 % (0.0-12.0); Nucleated Red Blood Cells % 0.1 %; Platelet Count (auto) 233 10^3/uL (140-450); Red Cell Distribution Width 16.2 % (11.8-14.3)
[2017-12-13 05:25] VITALS: BP 128/56
[2017-12-13 05:29] LABS: BUN/Creatinine Ratio 18.2; Calcium 8.1 mg/dL (8.5-10.1); Potassium 4.2 mmol/L (3.5-5.1)
[2017-12-13 05:48] VITALS: BP 128/56
[2017-12-13] MEDS ORDERED: metFORMIN HYDROCHLORIDE 500 MG TAB PO SCH (07:00)
[2017-12-13] MEDS: FERROUS SULFATE 325 MG TAB PO SCH ×3 (08:00→18:00)
[2017-12-13 08:56] VITALS: BP 109/42
[2017-12-13] MEDS: cefTRIAXone 1GM/10ml IVPUSH 10 ML IV SCH (08:57)
[2017-12-13 11:45] VITALS: BP 120/53
[2017-12-13] MEDS ORDERED: DEXTROSE (50%) 50ML SYRG IV PRN (15:30)
[2017-12-13] MEDS ORDERED: NITR100C44 PO (17:07)
[2017-12-13] MEDS ORDERED: ASPI325T4 PO (17:07)
[2017-12-13 17:08] VITALS: BP 129/72
[2017-12-13] MEDS: InsuLIN REG 1unit/0.01ml Soln (100units/ml) SC SCH ×2 (18:00→23:48)
[2017-12-13] MEDS: ACCU-CHEK COMFORT CURVE STRIP VI SCH ×2 (18:32→23:48)
[2017-12-13] MEDS: TEMAZEPAM 15 MG CAP PO PRN (21:58)
[2017-12-13] MEDS: ACETAMINOPHEN 500 MG TAB PO PRN (21:59)
[2017-12-13 22:00] VITALS: BP 141/61
[2017-12-14 05:00] VITALS: BP 157/58
[2017-12-14] MEDS: ACCU-CHEK COMFORT CURVE STRIP VI SCH ×4 (05:30→21:18)
[2017-12-14] MEDS: InsuLIN REG 1unit/0.01ml Soln (100units/ml) SC SCH ×4 (05:30→21:17)
[2017-12-14 06:37] LABS: Potassium 4.3 mmol/L (3.5-5.1)
[2017-12-14 06:52] LABS: Albumin 2.4 g/dL (3.4-5.0); BUN/Creatinine Ratio 16.2; Bilirubin, Total 0.3 mg/dL (0.2-1.0); Calcium 8.3 mg/dL (8.5-10.1); Total Protein 6.1 g/dL (6.4-8.2)
[2017-12-14] MEDS: FERROUS SULFATE 325 MG TAB PO SCH ×3 (08:00→17:55)
[2017-12-14 09:00] VITALS: BP 159/61
[2017-12-14] MEDS: cefTRIAXone 1GM/10ml IVPUSH 10 ML IV SCH (09:42)
[2017-12-14 13:00] VITALS: BP 152/72
[2017-12-14] MEDS: SODIUM CHLORIDE 0.9% 1,000 ML IV SCH (13:50)
[2017-12-14 16:19] VITALS: BP 168/75
[2017-12-14] MEDS: cloNIDine HCL 0.1 MG TAB PO PRN (18:57)
[2017-12-14 21:51] VITALS: BP 137/57
[2017-12-15] MEDS: SODIUM CHLORIDE 0.9% 1,000 ML IV SCH ×2 (04:33→23:10)
[2017-12-15] MEDS: ACCU-CHEK COMFORT CURVE STRIP VI SCH ×3 (04:33→17:33)
[2017-12-15] MEDS: InsuLIN REG 1unit/0.01ml Soln (100units/ml) SC SCH ×3 (04:33→17:32)
[2017-12-15 04:50] VITALS: BP 149/56
[2017-12-15 06:25] LABS: Eosinophils # (auto) 0.4 uL; Hemoglobin 7.9 g/dL (12.2-16.2); Lymphocytes # (auto) 0.9 uL; Neutrophils # (auto) 4.5 uL; Red Cell Distribution Width 16.2 % (11.8-14.3)
[2017-12-15 06:28] LABS: Basophils # (auto) 0 uL; Basophils % (auto) 0.6 % (0.0-2.0); Eosinophils % (auto) 6.1 % (0.0-7.0); Hematocrit 23.7 % (36.0-46.0); Lymphocytes % (auto) 14.1 % (10.0-50.0); Mean Corpuscular Hemoglobin 26.4 pg (28.0-32.0); Mean Corpuscular Hgb Conc. 33.3 g/dL (32.0-36.0); Mean Corpuscular Volume 79.4 fL (80.0-100.0); Monocytes # (auto) 0.7 uL; Monocytes % (auto) 10.9 % (0.0-12.0); Neutrophils % (auto) 68.3 % (37.0-80.0); Platelet Count (auto) 257 10^3/uL (140-450); Red Blood Cells 2.98 10^6/uL (4.0-5.20); White Blood Cell 6.6 10^3/uL (4.4-10.8)
[2017-12-15 06:56] LABS: Albumin 2.3 g/dL (3.4-5.0); Calcium 8.1 mg/dL (8.5-10.1); Potassium 4.4 mmol/L (3.5-5.1)
[2017-12-15 06:58] LABS: Bilirubin, Total 0.2 mg/dL (0.2-1.0); Total Protein 6.1 g/dL (6.4-8.2)
[2017-12-15] MEDS: FERROUS SULFATE 325 MG TAB PO SCH ×3 (08:00→17:32)
[2017-12-15 09:00] VITALS: BP 149/69
[2017-12-15] MEDS: cefTRIAXone 1GM/10ml IVPUSH 10 ML IV SCH (10:23)
[2017-12-15 13:00] VITALS: BP 149/69
[2017-12-15 16:50] VITALS: BP 150/81
[2017-12-15] MEDS: TEMAZEPAM 15 MG CAP PO PRN (20:19)
[2017-12-15] MEDS: ACETAMINOPHEN 500 MG TAB PO PRN (20:25)
[2017-12-15 22:00] VITALS: BP 146/80
[2017-12-16 05:00] VITALS: BP 182/80
[2017-12-16] MEDS: InsuLIN REG 1unit/0.01ml Soln (100units/ml) SC SCH ×3 (06:00→12:00)
[2017-12-16] MEDS: ACCU-CHEK COMFORT CURVE STRIP VI SCH ×3 (06:03→12:01)
[2017-12-16] MEDS: ACETAMINOPHEN 500 MG TAB PO PRN (06:07)
[2017-12-16] MEDS: cloNIDine HCL 0.1 MG TAB PO PRN (06:09)
[2017-12-16 07:03] LABS: Basophils # (auto) 0.1 uL; Eosinophils # (auto) 0.4 uL; Hemoglobin 8.2 g/dL (12.2-16.2); Monocytes # (auto) 0.7 uL
[2017-12-16 07:05] LABS: Basophils % (auto) 0.9 % (0.0-2.0); Eosinophils % (auto) 6.2 % (0.0-7.0); Hematocrit 24.9 % (36.0-46.0); Lymphocytes # (auto) 1.1 uL; Mean Corpuscular Hemoglobin 26.1 pg (28.0-32.0); Mean Corpuscular Hgb Conc. 32.8 g/dL (32.0-36.0); Mean Corpuscular Volume 79.6 fL (80.0-100.0); Monocytes % (auto) 9.3 % (0.0-12.0); Neutrophils # (auto) 4.8 uL; Neutrophils % (auto) 67.6 % (37.0-80.0); Nucleated Red Blood Cells % 0.1 %; Platelet Count (auto) 259 10^3/uL (140-450); Red Blood Cells 3.13 10^6/uL (4.0-5.20); Red Cell Distribution Width 16.3 % (11.8-14.3)
[2017-12-16 07:23] LABS: Potassium 4.1 mmol/L (3.5-5.1)
[2017-12-16 07:28] LABS: Albumin 2.4 g/dL (3.4-5.0); BUN/Creatinine Ratio 10.6; Calcium 8.1 mg/dL (8.5-10.1)
[2017-12-16 07:30] LABS: Bilirubin, Total 0.2 mg/dL (0.2-1.0); Total Protein 6.2 g/dL (6.4-8.2)
[2017-12-16 09:00] VITALS: BP 103/54
[2017-12-16] MEDS: cefTRIAXone 1GM/10ml IVPUSH 10 ML IV SCH (09:09)
[2017-12-16] MEDS: FERROUS SULFATE 325 MG TAB PO SCH ×2 (09:10→12:01)
[2017-12-16 12:00] VITALS: BP 139/63
[2017-12-16 13:57] VITALS: BP 139/63
[2017-12-16] MEDS: SODIUM CHLORIDE 0.9% 1,000 ML IV SCH (15:24)
== END 2017-12-16 16:35 | DRG 871 ==
LOC: ER 22:15 → OVERFLOW 22:16 → WEST WING 12-13 05:34
PROVIDERS: ADMIT Nurse Practitioner Family; ATTEND Family Medicine
DX: A41.9 Sepsis, unspecified organism (principal); G93.41 Metabolic encephalopathy; N39.0 Urinary tract infection, site not specified; E87.1 Hypo-osmolality and hyponatremia; I69.354 Hemiplegia and hemiparesis following cerebral infarction affecting left non-dominant side; E11.22 Type 2 diabetes mellitus with diabetic chronic kidney disease; F32.9 Major depressive disorder, single episode, unspecified; E78.00 Pure hypercholesterolemia, unspecified; B96.20 Unspecified Escherichia coli [E. coli] as the cause of diseases classified elsewhere; E86.0 Dehydration; I12.9 Hypertensive chronic kidney disease with stage 1 through stage 4 chronic kidney disease, or unspecified chronic kidney disease; N18.3 Chronic kidney disease, stage 3 (moderate); Z79.84 Long term (current) use of oral hypoglycemic drugs; Z82.49 Family history of ischemic heart disease and other diseases of the circulatory system; Z79.899 Other long term (current) drug therapy; Z83.3 Family history of diabetes mellitus
CPT/HCPCS: 36415; 71045; 80048; 80053; 81001; 82270; 82962; 83036; 85025; 87040; 87081; 87086; 87088; 87186; 96374; 97110; 97163; 97530; J0696

== ENCOUNTER 2020-01-12 17:33 | Inpatient (IN) | payer MEDICARE, OTHER ==
[~2020-01-12] VITALS: Ht 160 cm; Wt 68.1 kg
[~2020-01-12 17:33] MED LIST changes: +AML5T PO; +AMOX-277 PO; +ASPI-394 PO; -GLIP-115 PO; -METF-372 PO; -OMEP20CA74 OR; +SITA50TA PO; -SULF400T11 PO
[2020-01-12 19:15] LABS: Basophils # (auto) 0.1 10 ^3/uL (0-0.2); Basophils % (auto) 0.4 % (0.0-2.0); Eosinophils # (auto) 0.1 10 ^3/uL (0-0.8); Eosinophils % (auto) 0.8 % (0.0-7.0); Hematocrit 34.7 % (36.0-46.0); Hemoglobin 11.3 g/dL (12.2-16.2); Lymphocytes # (auto) 0.5 10 ^3/uL (0.4-5.4); Lymphocytes % (auto) 3.4 % (10.0-50.0); Mean Corpuscular Hgb Conc. 32.4 g/dL (32.0-36.0); Mean Corpuscular Volume 86.4 fL (80.0-100.0); Monocytes # (auto) 1.1 10 ^3/uL (0-1.3); Monocytes % (auto) 7.6 % (0.0-12.0); Neutrophils # (auto) 12.5 10 ^3/uL (1.6-8.6); Neutrophils % (auto) 87.8 % (37.0-80.0); Platelet Count (auto) 187 10^3/uL (140-450); Red Blood Cells 4.02 10^6/uL (4.0-5.20); Red Cell Distribution Width 13.9 % (11.8-14.3); White Blood Cell 14.2 10^3/uL (4.4-10.8)
[2020-01-12 19:36] LABS: Albumin 3.5 g/dL (3.4-5.0); Anion Gap 8 (5-15); Blood Urea Nitrogen 53 mg/dL (7-18); Calcium 10.6 mg/dL (8.5-10.1); Carbon Dioxide 23 mmol/L (21-32); Chloride 102 mmol/L (98-107); Glucose 101 mg/dL (74-106); Magnesium 2.4 mg/dL (1.6-2.6); Potassium 4.4 mmol/L (3.5-5.1); Sodium 133 mmol/L (136-145)
[2020-01-12 19:41] LABS: Alanine Aminotransferase 27 U/L (13-56); Alkaline Phosphatase 87 U/L (45-117); Aspartate Aminotransferase 14 U/L (15-37); Bilirubin, Total 0.3 mg/dL (0.2-1.0); GFR African American 20 mL/min; GFR Non-African American 17 mL/min; Total Protein 7.6 g/dL (6.4-8.2)
[2020-01-12 19:42] LABS: BUN/Creatinine Ratio 18.4
[2020-01-12] MEDS ORDERED: ONDANSETRON ODT 4 MG TAB PO ONE (20:15)
[2020-01-12] MEDS ORDERED: HYDROcodone-ACET 7.5/325MG TAB PO ONE (20:15)
[2020-01-12 22:37] LABS: Urine Bacteria FEW /hpf (None Seen); Urine Blood 2+ /uL (Negative); Urine Specific Gravity 1.012 (1.001-1.035); Urine WBC 176 /hpf (0 - 5); Urine WBC Clumps PRESENT /hpf (None Seen)
[2020-01-12] MEDS ORDERED: cefTRIAXone 1GM/50ML D5W 50 ML IV ONE (23:00)
[2020-01-12] MEDS ORDERED: SODIUM CHLORIDE 0.9% 500 ML IV ONE (23:00)
[2020-01-13] MEDS ORDERED: MORPHINE SULF INJ 2 MG/ML SYRINGE 1ML IV PRN (01:45)
[2020-01-13] MEDS ORDERED: ONDANSETRON HCL 4 MG/2 ML VIAL IV PRN (01:45)
[2020-01-13] MEDS ORDERED: NITROGLYCERIN 0.4 MG SL TAB SL PRN (01:45)
[2020-01-13] MEDS ORDERED: ACETAMINOPHEN 325 MG TAB PO PRN (01:45)
[2020-01-13] MEDS ORDERED: DOCUSATE SOD 100 MG CAP PO PRN (01:45)
[2020-01-13] MEDS ORDERED: HYDROcodone-ACET 5/325MG TAB PO PRN (01:45)
[2020-01-13 03:11] VITALS: BP 135/73
--- NOTE | 2020-01-13 03:11 | NUR ---
Telemetry admit from ER MALENA AMIN admitted to Telemetry unit. Patient oriented to primary RN, unit, room, bed, and unit policies regarding patient care and visiting hours. Fall and safety precautions in place. Call light within reach and able to use. Patient now on continuous telemetry monitoring, tele box #26 and telemetry reading on arrival to unit is SR 78 bpm. Patient weighed by bedscale and encouraged to call if she needs something. All questions and concerns addressed, patient verbalized understanding and in agreement. Will continue to monitor q1h and prn.
[2020-01-13] MEDS: MORPHINE SULFATE 4 MG/ML SYR/VIAL IV PRN ×2 (03:31→09:03)
--- NOTE | 2020-01-13 03:40 | NUR ---
WOUND PHOTO PHOTO TAKEN OF PATIENT'S RIGHT ELBOW WITH PATIENT'S CONSENT. SEE IN CHART. WILL CONTINUE TO MONITOR.
[2020-01-13] MEDS ORDERED: GLIP5TAB12 PO (04:23)
[2020-01-13] MEDS ORDERED: TRAZ50TA2 PO (04:23)
[2020-01-13] MEDS ORDERED: OXYB5SYP4 PO (04:23)
[2020-01-13 05:21] VITALS: BP 137/58
--- NOTE | 2020-01-13 06:35 | NUR ---
POM PATIENT'S POM TAKEN TO PHARMACY AT THIS TIME. MEDICATION BAG ID IS [id number]. SEE COPY IN CHART. WILL CONTINUE TO MONITOR.
[2020-01-13 08:15] LABS: Basophils # (auto) 0 10 ^3/uL (0-0.2); Basophils % (auto) 0.3 % (0.0-2.0); Eosinophils # (auto) 0.2 10 ^3/uL (0-0.8); Eosinophils % (auto) 1.5 % (0.0-7.0); Hematocrit 35.7 % (36.0-46.0); Hemoglobin 11.5 g/dL (12.2-16.2); Lymphocytes # (auto) 0.5 10 ^3/uL (0.4-5.4); Lymphocytes % (auto) 4.4 % (10.0-50.0); Mean Corpuscular Hemoglobin 27.8 pg (28.0-32.0); Mean Corpuscular Hgb Conc. 32.2 g/dL (32.0-36.0); Mean Corpuscular Volume 86.4 fL (80.0-100.0); Monocytes # (auto) 0.9 10 ^3/uL (0-1.3); Monocytes % (auto) 7.7 % (0.0-12.0); Neutrophils # (auto) 10.6 10 ^3/uL (1.6-8.6); Neutrophils % (auto) 86.1 % (37.0-80.0); Nucleated Red Blood Cells % 0.1 %; Platelet Count (auto) 192 10^3/uL (140-450); Red Blood Cells 4.13 10^6/uL (4.0-5.20); Red Cell Distribution Width 13.8 % (11.8-14.3); White Blood Cell 12.3 10^3/uL (4.4-10.8)
[2020-01-13 08:29] LABS: Albumin 3.3 g/dL (3.4-5.0); Calcium 10.6 mg/dL (8.5-10.1)
[2020-01-13 08:31] LABS: BUN/Creatinine Ratio 16.9
[2020-01-13 08:34] LABS: Bilirubin, Total 0.3 mg/dL (0.2-1.0); Total Protein 7.1 g/dL (6.4-8.2)
[2020-01-13] MEDS: ASPirin 81 mg TAB PO SCH (09:00)
[2020-01-13] MEDS: cefTRIAXone 1GM/50ML D5W 50 ML IV SCH (09:00)
[2020-01-13] MEDS: FAMOTIDINE 20 MG TAB PO SCH (09:00)
[2020-01-13] MEDS: MEMANTINE HCL 5 MG TAB PO SCH (09:01)
[2020-01-13 09:03] VITALS: BP 153/72
[2020-01-13] MEDS ORDERED: ENOXAPARIN SOD 30 MG/0.3 ML SYRINGE SC SCH (10:00)
[2020-01-13] MEDS ORDERED: MULTIPLE VITAMIN TAB PO SCH (10:00)
[2020-01-13] MEDS ORDERED: ZINC SULFATE 220mg CAP or TAB PO SCH (10:00)
[2020-01-13] MEDS ORDERED: HEPARIN SODIUM (PORCINE) 5000 UNITS/ML 1ML VIAL SC SCH (10:00)
[2020-01-13] MEDS ORDERED: ASCORBIC ACID 500 MG TAB PO SCH (10:00)
--- NOTE | 2020-01-13 11:52 | NUR ---
WOUND CARE NOTE: Wound care in to see patient per wound care request regarding skin integrity issue that are noted on admission. Patient is 84 years old female admitted for Lt Knee Pain. Patient is resting in bed in Rm. 220B. Patient is awake, alert and follow simple direction. Patient is in no stated pain at this time and she appears to be in no pain using Pop Guadarrama Faces Pain Scale. She's able to assist in turning and repositioning and her Dieter score is 17. On reports, patient has a mechanical fall at home, resulting to open partial skin tear to R elbow measuring 0.5x0.7cm and intact blood blister to distal R great toe. Blood blister to Rt great toe is intact, no drainage/odor noted,left open to air. R elbow skin tear cleansed with NS, patted dry with gauze, applied Thera honey gel and covered with small Opti foam gentle dressing. Patient is incontinent of urine and wet the care pad. Anahy care given, applied Barrier cream to sacral, buttocks as preventative. NO other wound noted, no pressure injury noted. Repositioned patient for comfort facing her Rt side, redistributed pressure points with pillows. Patient tolerated well. HARLEEN Caal at bedside. RECOMMENDATION: Nursing to continue with BID/PRN cleaning and application of Barrier cream to sacral, buttocks as preventative, Q3D/PRN dressing change to Rt elbow skin tear per MD order, frequent turning and repositioning schedule as condition permits, redistribute pressure points with pillows, frequent anahy care/check, keep clean and dry, continue monitoring by wound care while patient is hospitalized. Addendum: 01/13/20 at 1454 by Holli East RN Amended: Links added.
--- NOTE | 2020-01-13 12:10 | NUR ---
Dr. Sanchez at bedside. Change MRI to CT, fluid bolus and IV maintenance for sepsis. Orders received, read back and verified. Will medicate per orders.
--- NOTE | 2020-01-13 12:15 | NUR ---
Elevated BP Informed Dr. Sanchez of elevated BP prior to fluid bolus. NO bp medication orders at this time. Will continue to monitor.
[2020-01-13] MEDS ORDERED: SODIUM CHLORIDE 0.9% 1,000 ML IV ONE (12:30)
[2020-01-13 13:00] VITALS: BP 131/62
[2020-01-13] MEDS ORDERED: SODIUM CHLORIDE 0.9% 1,000 ML IV SCH (13:30)
[2020-01-13 15:13] LABS: Cholesterol 169 mg/dL (< 200)
[2020-01-13 15:16] LABS: HDL Cholesterol 39 mg/dL (40-59); LDL Cholesterol 115 mg/dL (< 100); Triglycerides 144 mg/dL (< 150)
--- NOTE | 2020-01-13 16:00 | NUR ---
Patient very sleepy. Since patient returned from CT scan, she is very tired, stated "I did not sleep last night", does not want to answer questions, she was able to help us turn her to change soiled chux, she did not eat lunch. Checked patient sugar, it was 71, encouraged her to drink some apple juice, she took a few sips. Patient states "I am tired, no more." Will continue to monitor.
--- NOTE | 2020-01-13 16:25 | NUR ---
Spoke to Son Bill She lives with Son Bill, he reported that when she is tired, you have to "snap her out of it, she gets tired and grumpy and she will not want to eat, maybe you guys could get her a protein drink." Will continue to monitor patient.
--- NOTE | 2020-01-13 16:33 | NUR ---
Spoke to Dr. Sanchez Regarding patient CT results, patient lethargy and sugar at 71, orders received readback and verified. Will medicate per orders.
[2020-01-13 16:35] VITALS: BP 142/60
[2020-01-13] MEDS: D5W/SOD CHLO 0.9% 1,000 ML IV SCH (17:07)
--- NOTE | 2020-01-13 17:19 | NUR ---
Patient sleeping at this time. No s/s of distress. Will continue to monitor.
--- NOTE | 2020-01-13 18:00 | NUR ---
Patient awake and alert at this time. After starting D5 with NS, patient is awake and asking questions, answering questions. A & O x 2 at this time. Will continue to monitor.
--- NOTE | 2020-01-13 19:15 | NUR ---
Opening Shift Note / Pain Assumed care of patient, awake and AOX4. No S/S of distress/SOB. Patient complaining of acute 9/10 using adult pain scale to left knee. Patient in agreement with medication for pain management. See emar for administration. Fall and safety precautions in place. Call light within reach and able to use. Instructed on POC and to call for assist PRN, patient verbalized understanding and in agreement. Will continue to monitor for changes Q1hr and PRN.
[2020-01-13] MEDS: MORPHINE SULF INJ 2 MG/ML SYRINGE 1ML IV PRN (19:17)
--- NOTE | 2020-01-13 19:47 | NUR ---
Pain Reassessment Patient's Pop Guadarrama Score 0; patient resting in bed with eyes closed / asleep. Will continue to monitor.
[2020-01-13 22:00] VITALS: BP 117/59
[2020-01-14] MEDS: D5W/SOD CHLO 0.9% 1,000 ML IV SCH ×3 (00:45→16:45)
[2020-01-14] MEDS: MORPHINE SULF INJ 2 MG/ML SYRINGE 1ML IV PRN (05:06)
[2020-01-14 05:45] VITALS: BP 154/74
[2020-01-14 06:42] LABS: Basophils # (auto) 0.1 10 ^3/uL (0-0.2); Basophils % (auto) 0.8 % (0.0-2.0); Eosinophils # (auto) 0.4 10 ^3/uL (0-0.8); Eosinophils % (auto) 4.7 % (0.0-7.0); Hematocrit 31.7 % (36.0-46.0); Hemoglobin 10.1 g/dL (12.2-16.2); Lymphocytes # (auto) 0.4 10 ^3/uL (0.4-5.4); Mean Corpuscular Hemoglobin 27.9 pg (28.0-32.0); Mean Corpuscular Volume 87.5 fL (80.0-100.0); Monocytes # (auto) 0.8 10 ^3/uL (0-1.3); Neutrophils # (auto) 5.8 10 ^3/uL (1.6-8.6); Neutrophils % (auto) 77.5 % (37.0-80.0); Nucleated Red Blood Cells % 0.1 %; Platelet Count (auto) 155 10^3/uL (140-450); Red Blood Cells 3.62 10^6/uL (4.0-5.20); Red Cell Distribution Width 13.7 % (11.8-14.3); White Blood Cell 7.5 10^3/uL (4.4-10.8)
[2020-01-14 06:55] LABS: Albumin 2.7 g/dL (3.4-5.0); Calcium 9.6 mg/dL (8.5-10.1); Potassium 4.8 mmol/L (3.5-5.1)
[2020-01-14 06:57] LABS: BUN/Creatinine Ratio 15.3
[2020-01-14 07:00] LABS: Bilirubin, Total 0.2 mg/dL (0.2-1.0); Total Protein 6.1 g/dL (6.4-8.2)
--- NOTE | 2020-01-14 07:50 | NUR ---
Opening Note Assumed care of patient, she is sleeping at this time, tried to wake patient. Patient knows her name, birthday and that she is in the hospital. She does not know why she is here the date at this time. A & O x2, patient is comfortable at this time, no complaints of pain, patient states "I am tired." Will continue to monitor. Patient is close to the nursing station, bed is in lowest, locked position, call light within reach, bed alarm on.
[2020-01-14] MEDS: FAMOTIDINE 20 MG TAB PO SCH (08:32)
[2020-01-14] MEDS: cefTRIAXone 1GM/50ML D5W 50 ML IV SCH (08:32)
[2020-01-14 09:00] VITALS: BP 156/65
--- NOTE | 2020-01-14 09:15 | NUR ---
Dr. Sanchez at bedside. Patient is lethargic and sleepy. Answering questions, but falls back asleep. Informed Dr. Sanchez that her BP is elevated, orders received for PRN, read back and verified. Will medicate per orders.
[2020-01-14] MEDS: MEMANTINE HCL 5 MG TAB PO SCH (10:56)
[2020-01-14] MEDS: ASPirin 81 mg TAB PO SCH (10:56)
--- NOTE | 2020-01-14 11:30 | NUR ---
Spoke to Dr. Sanchez. Informed him that MRI is not here today for exam. Also informed him that the patient did not want to cooperate for the Echo or Ultrasound. Patient refused. Patient is also refusing to use bedpan for urine sample. Informed Dr. Sanchez that patient is diabetic and on Glipizide and Januvia, if he wanted accuchecks, he wanted no further orders at this time. Neurology Consult has been called. Will continue to monitor.
[2020-01-14] MEDS ORDERED: cloNIDine HCL 0.1 MG TAB PO PRN (12:00)
[2020-01-14 13:00] VITALS: BP 166/74
--- NOTE | 2020-01-14 16:30 | NUR ---
Spoke to patient son Bill Verified medications patient is taking, he informed me that the list is correct. Will inform Dr. Sanchez.
[2020-01-14] MEDS ORDERED: cloNIDine HCL 0.1 MG TAB PO ONE (16:45)
--- NOTE | 2020-01-14 16:45 | NUR ---
Spoke to Dr. Sanchez patient blood pressure elevated. Patient BP is elevated, orders received, read back and verified. Will medicate per orders. Addendum: 01/14/20 at 1817 by Tiffany Nicholas RN Asked Dr. Sanchez if the BP is high after PRN, what to do, he informed me to wait for the 2200 dose of metoprolol. Will inform vocational rehabilitation supervisor to monitor.
[2020-01-14 17:00] VITALS: BP 169/94
--- NOTE | 2020-01-14 18:15 | NUR ---
Rechecked BP after second dose of clonidine. BP 129/75, HR 73. Patient is comfortable at this time. Patient is sitting up and took a couple of bites of food. Will continue to monitor.
--- NOTE | 2020-01-14 18:20 | NUR ---
Left son Bill a message to bring medications tomorrow. Per Dr. Sanchez request. Patient is not on any listed home BP medications and has a history of HTN, will await return phone call.
--- NOTE | 2020-01-14 19:35 | NUR ---
Opening Shift Note Assumed care of patient. Patient is currently A/Ox 2. Patient knows her name but is confused about where she is and why she is in the hospital. Reoriented the patient. No S/S of distress/SOB. Patient denies any knee pain at the moment. Patient is located near the nurse station. Instructed on POC and to call for assist PRN, will continue to monitor for changes Q1hr and PRN.
[2020-01-14] MEDS ORDERED: LORazepam 2MG/ML-1ML VIAL IV PRN (20:15)
[2020-01-14] MEDS ORDERED: MIRTAZAPINE 30 MG TAB PO PRN (20:15)
[2020-01-14] MEDS ORDERED: HALOPERIDOL LACTATE 5 MG/ML INJ VIAL IM PRN (20:15)
[2020-01-14] MEDS: METOPROLOL TARTRATE 50 MG TAB PO SCH ×2 (20:50→22:50)
[2020-01-14 22:00] VITALS: BP 142/55
[2020-01-14] MEDS: ATORVASTATIN 20 MG TAB PO SCH (22:50)
[2020-01-15] MEDS: D5W/SOD CHLO 0.9% 1,000 ML IV SCH ×3 (00:45→16:33)
--- NOTE | 2020-01-15 03:00 | NUR ---
The patient became agitated and confused. Patient unaware of where she is and does not believe she is in the hospital. She states that we are not real employees and are wearing costumes to trick her. The patient began to scream and yell. Patient also tries to get out of bed. Patient pulled out her IV and pulled off the tele monitor. Patient refusing new IV placement. Will treat with PRN Haldol.
--- NOTE | 2020-01-15 03:30 | NUR ---
HYPERTENSION The patient's blood pressure is 175/68. Will administer PRN clonidine 0.2 mg and will reevaluate.
[2020-01-15] MEDS: cloNIDine HCL 0.1 MG TAB PO PRN ×2 (03:34→16:33)
--- NOTE | 2020-01-15 04:44 | NUR ---
Reevaluated the patient's blood pressure after administration of Clonidine. Blood pressure is currently 107/52 with a heart rate of 53. Patient is resting comfortably in bed. Will continue to monitor the patient.
[2020-01-15 05:00] VITALS: BP 107/52
--- NOTE | 2020-01-15 05:13 | NUR ---
IV insertion IV access obtained, via clean sterile technique by inserting 22 gauge catheter at left FA after 2 attempt(s). IV secured properly. No trauma to site. Patient tolerated well.
[2020-01-15 09:00] VITALS: BP 158/46
[2020-01-15] MEDS: cefTRIAXone 1GM/50ML D5W 50 ML IV SCH (09:20)
[2020-01-15] MEDS: METOPROLOL TARTRATE 50 MG TAB PO SCH ×2 (09:21→22:43)
[2020-01-15] MEDS: ASPirin 81 mg TAB PO SCH (09:21)
[2020-01-15] MEDS: FAMOTIDINE 20 MG TAB PO SCH (09:21)
[2020-01-15] MEDS ORDERED: FAMOTIDINE 20 MG TAB PO SCH (10:30)
[2020-01-15 13:00] VITALS: BP 175/75
[2020-01-15 17:00] VITALS: BP 191/83
[2020-01-15 22:00] VITALS: BP 120/58
[2020-01-15] MEDS: ATORVASTATIN 20 MG TAB PO SCH (22:40)
[2020-01-16] MEDS: D5W/SOD CHLO 0.9% 1,000 ML IV SCH ×3 (00:40→17:06)
[2020-01-16 05:30] VITALS: BP 165/110
[2020-01-16] MEDS: cloNIDine HCL 0.1 MG TAB PO PRN ×2 (07:04→16:43)
--- NOTE | 2020-01-16 07:40 | NUR ---
Opening Note Received report from night manager RN. Patient is awake, alert and oriented to name and date only at this time. Patient is on room air, respirations even and unlabored. Patient is on room air, respirations even and unlabored. Reviewed plan of care. Bed in low and locked position, call light within reach. Bed alarm on for safety. Will continue to monitor Q1 hour and PRN.
--- NOTE | 2020-01-16 08:10 | NUR ---
EEG in progress at beside
[2020-01-16 08:33] VITALS: BP 152/68
[2020-01-16] MEDS: METOPROLOL TARTRATE 50 MG TAB PO SCH ×2 (09:17→21:11)
[2020-01-16] MEDS: ASPirin 81 mg TAB PO SCH (09:17)
[2020-01-16] MEDS: cefTRIAXone 1GM/50ML D5W 50 ML IV SCH (09:18)
--- NOTE | 2020-01-16 10:15 | NUR ---
Dr. Tray Sanchez at bedside MD at bedside discussing plan of care with patient and this RN. No new orders received, will continue to monitor Q1 and PRN.
--- NOTE | 2020-01-16 10:50 | NUR ---
Physical therapy at bedside physical therapy at bedside working with patient.
[2020-01-16 12:18] VITALS: BP 120/53
--- NOTE | 2020-01-16 12:29 | NUR ---
Nutrition Assessment Est energy needs 9844-4763 kcal (20-25 kcal/kg BW 68.1kg) Est protein needs 54-61g (0.8-0.9g/kg BW 68.1kg r/t CKD no HD) WIll reassess prn. Addendum: 01/16/20 at [address] Amended: Links added.
--- NOTE | 2020-01-16 13:00 | NUR ---
Patient taken down for MRI
--- NOTE | 2020-01-16 13:12 | NUR ---
Unable to complete MRI Patient is back from MRI, unable to perform scan. Patient had episode of incontinence on table. Per tech they will attempt the MRI later.
--- NOTE | 2020-01-16 14:16 | NUR ---
EEG-ELECTROENCEPHALOGRAM COMPLETED AT BEDSIDE @ 0825.
--- NOTE | 2020-01-16 14:42 | NUR ---
Patient taken back down to MRI
--- NOTE | 2020-01-16 15:05 | NUR ---
Patient back from MRI
--- NOTE | 2020-01-16 16:00 | NUR ---
Incontinence Patient had multiple episodes of incontinences of urine and stool through out the day. Patient cleaned and repositioned.
[2020-01-16 17:00] VITALS: BP 179/62
--- NOTE | 2020-01-16 18:00 | NUR ---
Wound care Wound care and dressing change to right elbow completed. Patient tolerated well. Will continue to monitor.
--- NOTE | 2020-01-16 19:00 | NUR ---
Closing Note Report given to shift supervisor melting RN. No signs or symptoms of distress noted at this time. Bed alarm on for safety.
--- NOTE | 2020-01-16 19:38 | NUR ---
Opening Shift Note Assumed care of patient, awake, but confused, alert to self and place only. No S/S of distress/SOB or pain. Tele box number matches monitor and leads are in correct placement. Bed is in lowest position and locked. Call light within reach. Board updated. Instructed on POC and to call for assist PRN, will continue to monitor for changes Q1hr and PRN.
[2020-01-16] MEDS: ATORVASTATIN 20 MG TAB PO SCH (21:10)
[2020-01-16 21:42] VITALS: BP 118/68
[2020-01-16] MEDS ORDERED: DONEPEZIL HYDROCHLORIDE 5 MG TAB PO SCH (22:00)
[2020-01-17] MEDS: D5W/SOD CHLO 0.9% 1,000 ML IV SCH ×3 (00:55→16:45)
--- NOTE | 2020-01-17 06:11 | NUR ---
Spoke to AMOS Guerra and notified of elevated BP of 164/66 with decreased HR: 50. Order received: do not give clonidine, instead place order for Hydralazine 10 mg IV once.
[2020-01-17] MEDS ORDERED: hydrALAZINE HCL 20 MG/ML VL IV ONE (06:15)
--- NOTE | 2020-01-17 07:10 | NUR ---
Opening Note Received report from restaurant shift leader RN. Patient is awake, alert and oriented to name and date only at this time. Patient complains of shortness of breath, oxygen saturation 93%, placed on 2L NC. Reviewed plan of care. Bed in low and locked position, call light within reach. Bed alarm on for safety. Will continue to monitor Q1 hour and PRN.
[2020-01-17 09:00] VITALS: BP 153/55
[2020-01-17] MEDS: METOPROLOL TARTRATE 50 MG TAB PO SCH (09:35)
[2020-01-17] MEDS: cefTRIAXone 1GM/50ML D5W 50 ML IV SCH (09:35)
[2020-01-17] MEDS: ASPirin 81 mg TAB PO SCH (09:35)
--- NOTE | 2020-01-17 10:25 | NUR ---
Dr. Tray Sanchez at bedside MD at bedside discussing plan of care with patient. Patient to discharge home today with home health. Will continue to monitor Q1 hour and PRN.
[2020-01-17] MEDS ORDERED: FAMOTIDINE 20 MG TAB PO SCH (10:30)
[2020-01-17 10:50] VITALS: BP 153/55
[2020-01-17 12:30] VITALS: BP 158/59
--- NOTE | 2020-01-17 13:35 | NUR ---
genaro swab collected and walked to lab
[2020-01-17 16:37] VITALS: BP 183/67
--- NOTE | 2020-01-17 16:47 | NUR ---
Assessment Patient is an 84-year-old female with history of Dementia. Assessment was completed with patient son Erik. Per Erik prior to admission patient live home with him and functioned with assistance. Per Erik he helps patient with her ADL's. Advised patient there is a social service consult for SNF placement. Erik requested [facility]. Faxed clinical information to [facility] Per Verna with [facility] patient has been [facility] accepting MD, Dr. Grajeda. [facility] transportation has been arranged for 9pm via [employer]. Informed Erik he has the right to participate in all discharge planning. Erik verbalized understanding and agreed to discharge plan. Informed RN Summer. Addendum: 01/17/20 at 1652 by GERRY GREENE Amended: Links added.
--- NOTE | 2020-01-17 18:15 | NUR ---
Report called to [facility] Report given to Emeli, all questions and concerns addressed. Patient to be picked up by Sweta Romero at 2100, and is going to room 17A.
[2020-01-17] MEDS: cloNIDine HCL 0.1 MG TAB PO PRN (18:51)
--- NOTE | 2020-01-17 18:51 | NUR ---
discharge wound photos taken
--- NOTE | 2020-01-17 19:10 | NUR ---
Opening Shift Note Assumed care of patient from day shift RN patient awake and alert to self. No S/S of distress/SOB or pain. Instructed on POC and to call for assist PRN,safety measures in place bed in lowest position, bed alarm on, call light with in reach and side rails up x2. will continue to monitor for changes Q1hr and PRN.
--- NOTE | 2020-01-17 19:26 | NUR ---
Closing Note Report given to shift stacker RN. No signs or symptoms of distress noted at this time. Patient awaiting transfer to [facility]. Bed alarm on for safety.
--- NOTE | 2020-01-17 20:20 | NUR ---
Pt being trans to another facility Order obtained for transfer of MALENA AMIN to [facility] post acute. Report called/given to Emeli. Report given to EMS transport team. Medication reconciliation form completed and copy given to patient. Transported via gurney along with copied chart and imaging films/disk and all personal belongings. No distress noted on time of departure. Family notified of destination and room number, verbalized understanding.
== END 2020-01-17 20:20 | DRG 871 ==
LOC: ER 17:33 → TELE 17:34 → TELE-CENTR 01-13 03:09
PROVIDERS: ADMIT Nurse Practitioner Family; ATTEND Family Medicine
DX: A41.9 Sepsis, unspecified organism (principal); G93.41 Metabolic encephalopathy; N18.4 Chronic kidney disease, stage 4 (severe); E87.1 Hypo-osmolality and hyponatremia; N30.01 Acute cystitis with hematuria; I69.354 Hemiplegia and hemiparesis following cerebral infarction affecting left non-dominant side; E86.0 Dehydration; F03.90 Unspecified dementia, unspecified severity, without behavioral disturbance, psychotic disturbance, mood disturbance, and anxiety; G93.89 Other specified disorders of brain; F32.9 Major depressive disorder, single episode, unspecified; E78.00 Pure hypercholesterolemia, unspecified; G40.409 Other generalized epilepsy and epileptic syndromes, not intractable, without status epilepticus; E11.22 Type 2 diabetes mellitus with diabetic chronic kidney disease; M25.562 Pain in left knee; W18.30XA Fall on same level, unspecified, initial encounter; I12.9 Hypertensive chronic kidney disease with stage 1 through stage 4 chronic kidney disease, or unspecified chronic kidney disease; E78.5 Hyperlipidemia, unspecified; Z20.828 Contact with and (suspected) exposure to other viral communicable diseases; Y93.89 Activity, other specified; Y92.098 Other place in other non-institutional residence as the place of occurrence of the external cause; Y99.8 Other external cause status; Z83.3 Family history of diabetes mellitus; Z82.49 Family history of ischemic heart disease and other diseases of the circulatory system; Z79.82 Long term (current) use of aspirin; Z79.899 Other long term (current) drug therapy
CPT/HCPCS: 36415; 70450; 70551; 73080; 73562; 73700; 80053; 80061; 81001; 82962; 83036; 83735; 84484; 85025; 87040; 87086; 87426; 93005; 93886; 95819; 96365; 97110; 97116; 97163; 97530; G0378; J0696; J2405; J7042; Q0162